=== PATIENT | female | born 1945 | race Hispanic/Latino ===

== ENCOUNTER 2023-01-24 10:15 | Outpatient (CLI) | payer MEDICARE ==
[2023-01-24] MEDS ORDERED: Iopamidol 300 61% 100 ML VIAL FS ONE (14:02)
== END 2023-01-24 10:16 | disposition home or self-care (01) ==
LOC: CSHCT 10:15
PROVIDERS: ATTEND Family Medicine Addiction Medicine
DX: J32.0 Chronic maxillary sinusitis (principal); Z98.890 Other specified postprocedural states; R93.0 Abnormal findings on diagnostic imaging of skull and head, not elsewhere classified
CPT/HCPCS: 70487; 82565; Q9967